=== PATIENT | female | born 1995 | race Caucasian/White ===

== ENCOUNTER 2018-09-08 11:04 | Outpatient (CLI) | payer OTHER ==
[2018-09-09] MEDS ORDERED: PRENATAL GUMMI1 EACH PO (08:18)
== END 2018-09-08 17:00 | disposition home or self-care (01) ==
LOC: SONOGRAMA 11:04
DX: Z34.00 Encounter for supervision of normal first pregnancy, unspecified trimester (principal)

== ENCOUNTER 2018-09-09 07:00 | Day surgery (SDC) | payer OTHER ==
[~2018-09-09] VITALS: Ht 165.1 cm; Wt 58.1 kg
[2018-09-09] MEDS ORDERED: PRENATAL GUMMI1 EACH PO (08:18)
--- NOTE | 2018-09-09 08:18 | NUR ---
PT CON ORDEN DE ADMISION PARA CIRUGIA AMBULATORIA SUCTION AND CURETTAGE.
== END 2018-09-09 13:00 | disposition home or self-care (01) ==
LOC: CIR.AMB 07:00 → ER 08:09 → SEC-K 08:38 → ER 08:38 → O/R 08:38 → EDSTATUS 12:00 → CIR.AMB 13:00 → O/R 13:43 → SEC-K 13:43 → O/R 13:43
DX: O02.1 Missed abortion (principal); Z3A.09 9 weeks gestation of pregnancy

== ENCOUNTER 2019-06-17 09:50 | Inpatient (IN) | payer OTHER ==
[~2019-06-17] VITALS: Ht 165.1 cm; Wt 68.5 kg
[~2019-06-17 09:50] MED LIST: PRENATAL GUMMI1 EACH PO
[2019-07-17] MEDS ORDERED: RHOGAM ULTR1500 UNIT IM (08:57)
[2019-07-18] MEDS ORDERED: HYDROCORTISO453.6 GM TOP (10:39)
[2019-07-18] MEDS ORDERED: IBU600 MG PO (10:39)
[2019-07-18] MEDS ORDERED: PRENATAL GUMMI1 EACH PO (10:39)
[2019-07-18] MEDS ORDERED: Dermoplast SPRAY TOP (10:39)
== END 2019-07-18 12:37 | disposition home or self-care (01) | DRG 807 ==
LOC: LDR 07-16 05:08 → OB/GYN 07-16 16:38
PROVIDERS: ADMIT Specialist
PROC: 10E0XZZ Delivery of Products of Conception, External Approach (ICD-10-PCS; principal; 2019-07-16)
PROC: 10907ZC Drainage of Amniotic Fluid, Therapeutic from Products of Conception, Via Natural or Artificial Opening (ICD-10-PCS; 2019-07-16)
PROC: 3E033VJ Introduction of Other Hormone into Peripheral Vein, Percutaneous Approach (ICD-10-PCS; 2019-07-16)
PROC: 4A1HXCZ Monitoring of Products of Conception, Cardiac Rate, External Approach (ICD-10-PCS; 2019-07-16)
DX: O80 Encounter for full-term uncomplicated delivery (principal); Z37.0 Single live birth; Z3A.40 40 weeks gestation of pregnancy